=== PATIENT | female | born 2000 | race Caucasian/White ===

== ENCOUNTER 2022-02-14 12:39 | Emergency (ER) | payer OTHER ==
[2022-02-14] MEDS ORDERED: NEXPLANON68 MG SUB-Q (13:12)
[2022-02-14] MEDS ORDERED: PROZAC10 MG PO (13:12)
[2022-02-14] MEDS ORDERED: CEPHALEXIN500 M1 PO (14:14)
== END 2022-02-14 14:39 | disposition home or self-care (01) ==
LOC: ED 12:39
DX: N39.0 Urinary tract infection, site not specified (principal)
CPT/HCPCS: 80048; 81001; 84703; 85025; 87088; 99284; A9270